=== PATIENT | female | born 1995 | race Two or more races ===

== ENCOUNTER 2021-06-25 21:31 | Emergency (ER) | payer MEDICAID, OTHER ==
[~2021-06-25] VITALS: Ht 160 cm; Wt 99.8 kg
[2021-06-26 00:05] LABS: Basophils # (auto) 0 10 ^3/uL (0-0.2); Basophils % (auto) 0.4 % (0.0-2.0); Eosinophils # (auto) 0.1 10 ^3/uL (0-0.8); Eosinophils % (auto) 1.1 % (0.0-7.0); Hematocrit 37.2 % (36.0-46.0); Hemoglobin 11.7 g/dL (12.2-16.2); Lymphocytes # (auto) 2.2 10 ^3/uL (0.4-5.4); Lymphocytes % (auto) 30.2 % (10.0-50.0); Mean Corpuscular Hemoglobin 20.5 pg (28.0-32.0); Mean Corpuscular Hgb Conc. 31.5 g/dL (32.0-36.0); Mean Corpuscular Volume 65.2 fL (80.0-100.0); Monocytes # (auto) 0.8 10 ^3/uL (0-1.3); Monocytes % (auto) 10.7 % (0.0-12.0); Neutrophils # (auto) 4.3 10 ^3/uL (1.6-8.6); Neutrophils % (auto) 57.6 % (37.0-80.0); Nucleated Red Blood Cells % 0.2 %; Red Cell Distribution Width 17.4 % (11.8-14.3); White Blood Cell 7.4 10^3/uL (4.4-10.8)
[2021-06-26 00:26] LABS: Albumin 3.6 g/dL (3.4-5.0); Calcium 8.7 mg/dL (8.5-10.1); Potassium 3.7 mmol/L (3.5-5.1)
[2021-06-26 00:29] LABS: Bilirubin, Total 0.4 mg/dL (0.2-1.0)
[2021-06-26 09:37] VITALS: BP 123/68
[2021-06-26] MEDS ORDERED: CEPH-509 PO (09:55)
[2021-06-26] MEDS ORDERED: METR500T PO (09:55)
[2021-06-26 10:00] LABS: Urine Bacteria FEW /hpf (None Seen); Urine Blood Negative /uL (Negative); Urine Mucus MANY (None Seen); Urine Specific Gravity 1.034 (1.001-1.035); Urine WBC 7 /hpf (0 - 5)
== END 2021-06-26 10:07 | disposition home or self-care (01) ==
LOC: ER 21:31
DX: K52.9 Noninfective gastroenteritis and colitis, unspecified (principal)
CPT/HCPCS: 36415; 74176; 80053; 81001; 85025; 93005